=== PATIENT | male | born 1970 | race Caucasian/White ===

== ENCOUNTER 2017-05-08 21:48 | Emergency (ER) | payer OTHER ==
[~2017-05-08] VITALS: Ht 170.2 cm; Wt 83.0 kg
[2017-05-08] MEDS ORDERED: SYNTHROID125 MCG PO (21:58)
[2017-05-08] MEDS ORDERED: AGRYLIN0.5 M1 PO (22:07)
[2017-05-09] MEDS ORDERED: BICARSIM FORTE125 MG PO (03:20)
== END 2017-05-09 03:14 | disposition home or self-care (01) ==
LOC: ER 21:48
DX: R07.89 Other chest pain (principal); D64.9 Anemia, unspecified

== ENCOUNTER 2020-07-12 04:26 | Emergency (ER) | payer OTHER ==
[~2020-07-12] VITALS: Ht 170.2 cm; Wt 86.2 kg
[~2020-07-12 04:26] MED LIST: AGRYLIN0.5 M1 PO; BICARSIM FORTE125 MG PO; SYNTHROID125 MCG PO
[2020-07-12] MEDS ORDERED: ICLUSIG (04:37)
[2020-07-12] MEDS ORDERED: ACETAMINOPHEN650 M2 PO (08:54)
[2020-07-12] MEDS ORDERED: CEFUROXIME500 MG PO (08:54)
== END 2020-07-12 09:11 | disposition home or self-care (01) ==
LOC: ER 04:26
DX: M54.5 Low back pain (principal); R50.9 Fever, unspecified; Z11.52 Encounter for screening for COVID-19

== ENCOUNTER 2022-03-13 12:57 | Emergency (ER) | payer OTHER ==
[~2022-03-13] VITALS: Ht 167.6 cm; Wt 74.8 kg
[~2022-03-13 12:57] MED LIST changes: +ACETAMINOPHEN650 M2 PO; +CEFUROXIME500 MG PO; +ICLUSIG
== END 2022-03-13 16:19 | disposition home or self-care (01) ==
LOC: ER 12:57
DX: S53.402A Unspecified sprain of left elbow, initial encounter (principal); M70.32 Other bursitis of elbow, left elbow; Y93.89 Activity, other specified; E03.9 Hypothyroidism, unspecified; X50.9XXA Other and unspecified overexertion or strenuous movements or postures, initial encounter; Y92.019 Unspecified place in single-family (private) house as the place of occurrence of the external cause

== ENCOUNTER 2023-03-08 08:09 | Emergency (ER) | payer OTHER ==
[~2023-03-08] VITALS: Ht 170.2 cm; Wt 84.8 kg
[2023-03-08] MEDS ORDERED: ICLUSIG15 MG PO (08:16)
[2023-03-08 09:46] LABS: HEMATOCRIT 43.5 % (39.0-48.0); MEAN CELL VOLUME 85.4 fL (80.0-100.00); MEAN CORPUSCULAR HEMOGLOBIN 29.5 pg (27.00-32.0); MEAN CORPUSCULAR HGB CONC 34.6 g/dl (32.0-36.0); PLATELET COUNT 232 K/uL (150-450); RED CELL DISTRIBUTION WIDTH 13.8 % (11.5-14.5)
[2023-03-08 10:09] LABS: CALCIUM 9.3 mg/dL (8.5-10.1); CREATININE SERUM 1.13 mg/dL (0.70-1.30); GFR 67.62; POTASSIUM 3.78 mEq/L (3.5-5.1)
== END 2023-03-08 14:05 | disposition home or self-care (01) ==
LOC: ER 08:10
PROVIDERS: General Practice
DX: M50.00 Cervical disc disorder with myelopathy, unspecified cervical region (principal); R20.0 Anesthesia of skin